=== PATIENT | male | born 1975 | race Caucasian/White ===

== ENCOUNTER → 2020-07-13 | Day surgery (SDC) | payer OTHER ==
[~2020-07-13] MED LIST: CHOL400T36 PO; CHOL500021 PO; LIDOCAINE 1%/EPI 1:100,000 20 ML VIAL. ONE; LIDOCAINE 2%/EPI 1:100,000 20 ML VIAL. IJ ONE; LIDOCAINE 2%/EPI 1:100,000 20 ML VIAL. ONE; SIMV20TA18 PO
--- NOTE | 2020-07-13 08:36 | PDOC4 ---
Operative Report DATE July 132020 at 832 Preop Diagnosis Lipomas x3 left forearm, right upper arm, right flank Post-op Diagnosis Same Operation Performed Excision of lipomas. Procedure of excision's lipoma were explained to the patient detail risk-benefit were also discussed including bleeding infection alternatives to this procedure also discussed with the patient who seemed to understand and gave a verbal written consent had procedure performed. Patient was taken to the minors room placed in supine position. His left forearm was prepped and draped usual sterile fashion using ChloraPrep. An area over the mass was injected with quarter percent 1% lidocaine with epinephrine once this was anesthetized incision was made 15 blade scalpel and the 3 cm lipoma was excised sharply with Metzenbaum scissors and sent for pathology. The incision was 4 cm in length this was closed in a single layer 4-0 subcuticular Monocryl. Tensions were then turned to the right upper arm mass which was prepped and draped usual sterile fashion using ChloraPrep area over the mass was injected with 1% lidocaine with epinephrine once this was anesthetized incision was made 15 blade scalpel is carried down through subcutaneous tissues and the mass which appeared to be a lipoma was removed 2 cm in size the incision was 3 cm the wound was closed in a single layer 4 subcuticular Monocryl. Tensions were then turned to the right flank this was prepped and draped in usual sterile fashion using ChloraPrep area over the mass was injected with 1% lidocaine with epinephrine again once this was anesthetized incision with a 15 blade scalpel the lipomatous mass was removed with sharp dissection it was 1 cm in length and the incision was 3 cm the wound was closed with a single layer 4 subcuticular Monocryl Mastisol Steri-Strips and island dressings were applied to all the areas patient tolerated procedure well was discharged home in stable condition all sponge instrument needle counts listed as correct estimated blood loss 5 mL Surgeon Fredo ANESTHESIA PROPOSED: LOCAL Blood Loss 5 mL Specimen Left forearm mass, right upper arm mass, right flank mass Complications None BERT GUERRA MD Jul 13, 2020 08:36
[2020-07-13 08:42] VITALS: BP 126/77
--- NOTE | 2020-07-13 09:10 | DISCH ---
DISCHARGE INSTRUCTIONS-DC Condition on Discharge Condition on Discharge: Stable Activity after Discharge Activity Instructions for Disc: No restrictions Diet after Discharge Diet after Discharge: Regular Wound/Incision Care Other wound/incision instructi: Kasey shower in 24 hours Contacting the DRJani after DC Call your doctor for: If your condition worsens Follow-Up Follow up with: Dr. Guerra in 2 weeks BERT GUERRA MD Jul 13, 2020 09:10
--- NOTE | 2020-07-15 18:31 | PATHOLOGY ---
[facility] [place] Accession Number: [id number] . 01 Material submitted: . PART A: forearm - MASS LEFT FOREARM. Modifiers: left, middle PART B: arm - MASS UPPER RIGHT EXTREMITY. Modifiers: upper, right PART C: flank - MASS RIGHT FLANK. Modifiers: right . 01 Clinical history: . EXCISION OF LIPOMA EXCISION OF 3 LIPOMAS UNDER LOCAL ANESTHETIC . 02 Diagnosis: A. Segments of fibroadipose tissue, left forearm mass: - Lipoma, with focal features of angiolipoma. . B. Segments of fibroadipose tissue, right upper extremity mass: - Angiolipoma. . C. Segments of fibroadipose tissue, right flank mass: - Lipoma, with focal features of angiolipoma. . (MINERVAM:donal; 07/15/2020) [facility] 07/15/2020 1705 Local . 02 Comment: There is no evidence of malignancy. (MINERVAM:donal; 07/15/2020) . 02 Electronically signed: . Singh Cochran MD, Pathologist NPI- [id number] . 01 Gross description: . A. Fixative: Formalin Labeled: Mass left forearm Specimen received: Two segments of bright yellow lobulated tissue Dimensions: 3.5 x 2.6 x 1.4 cm External surface: Smooth Cut surface: Bright yellow, lobulated . Leather Cleaner sections are submitted in cassette A1. . B. Fixative: Formalin Labeled: Mass upper right extremity Specimen received: Two segments of bright yellow lobulated tissue Dimensions: 3.8 x 3.2 x 0.9 cm External surface: Smooth to shaggy Cut surface: Bright yellow, lobulated . Leather Cleaner sections are submitted in cassette B1. . C. Fixative: Formalin Labeled: Mass right flank Specimen received: Multiple segments of yellow-hawthorne lobulated tissue Dimensions: 3.7 x 2.2 x 1.7 cm External surface: Smooth to shaggy Cut surface: Yellow-hawthorne, lobulated . Leather Cleaner sections are submitted in cassette C1. (CAA; 07/14/2020) QAC/QAC 07/14/2020 1304 Local . 02 Pathologist provided ICD-10: D17.22, D17.21, D17.1 . 02 CPT . 822097, [id number], 313396 Specimen Comment: A courtesy copy of this report has been sent to [phone], [phone] Specimen Comment: [id number] Specimen Comment: Report sent to / DR NOEL Performed at: [facility] [address], [place] [id number] MD Panchito Alicea MD Phone: [phone] Performed at: [facility] [address] [place], [place] [id number] MD Singh Cochran MD Phone: [phone]
--- NOTE | 2020-07-26 08:50 | PDOC1 ---
History of Present Illness Reason for Visit: Excision of lipomas of extremity and trunk date of service 07/13/2020 History of Present Illness 45-year-old male with complaints of enlarging masses on his extremities and flank area he has had previous lipomas removed before Allergies: Coded Allergies: Penicillins (Verified Allergy, Unknown, Hives, 07/13/20) Past Medical History Cardiac: No pertinent hx Pulmonary: No pertinent hx GI: No pertinent hx Heme/Onc: No pertinent hx Hepatobiliary: No pertinent hx Psych: No pertinent hx Musculoskeletal: No pertinent hx Rheumatologic: No pertinent hx Infectious disease: No pertinent hx ENT: No pertinent hx Renal/: No pertinent hx Endocrine: No pertinent hx Dermatology: No pertinent hx Past Surgical History: No pertinent history Family History: No pertinent hx Past Social History Smoke: No Alcohol: none Drugs: None Lives: with Family Review of Systems Review Of Systems Fourteen system , review of systems has been reviewed. See HPI for pertinent positives and negative responses, other watson all other systems are negative, non pertinent or non contributory Medications Current Medications Lidocaine/ Epinephrine (Xylocaine 1%-Epi 1:100,000) 20 ml STK-MED ONCE .ROUTE ; Start 07/13/20 at 07:37; Stop 07/13/20 at 07:37; Status DC Lidocaine/ Epinephrine (Xylocaine 2%-Epi 1:100,000) 20 ml STK-MED ONCE .ROUTE ; Start 07/13/20 at 08:15; Stop 07/13/20 at 08:16; Status DC Lidocaine/ Epinephrine (Xylocaine 2%-Epi 1:100,000) 40 ml STK-MED ONCE IJ Last administered on 07/13/20at 08:08; Start 07/13/20 at 08:08; Stop 07/13/20 at 08:32; Status DC Active Scripts Active Reported D3-50 (Cholecalciferol (Vitamin D3)) 50,000 Unit Capsule 1 Cap PO WEEKLY 28 Days Simvastatin 20 Mg Tablet 1 Tab PO QHS Exam General Appearance: Alert, Oriented X3, Cooperative, No acute distress HEENT: Atraumatic, PERRLA, EOMI Respiratory: Clear to auscultation, Normal air movement Heart: Regular rate, No murmurs Abdominal: Normal bowel sounds, Soft, No tenderness Skin: No significant lesion (3 lipomatous masses 2 in the right upper extremity 1 in the right flank) Assessment/Plan Assessment/Plan Excision of lipomatous masses in minors under local COURSE Allergies Coded Allergies Type Severity Reaction Last Updated Verified Penicillins Allergy Unknown Hives 07/13/20 Yes Justification of Admission: Justification of Admission: Justification of Admission Dx: N/A BERT GUERRA MD July 26, 2020 08:50
== END | disposition home or self-care (01) ==
LOC: SURG 06:52
PROVIDERS: ATTEND Surgery
DX: D17.1 Benign lipomatous neoplasm of skin and subcutaneous tissue of trunk (principal); D17.22 Benign lipomatous neoplasm of skin and subcutaneous tissue of left arm; D17.21 Benign lipomatous neoplasm of skin and subcutaneous tissue of right arm; Z88.0 Allergy status to penicillin; Z79.899 Other long term (current) drug therapy
CPT/HCPCS: 88304